=== PATIENT | male | born 1945 | race Asian ===

== ENCOUNTER 2018-01-22 23:31 | Emergency (ER) | payer SELFPAY | END 2018-01-23 | disposition left against medical advice (07) | LOC: EMS 23:31 | DX: R30.9 Painful micturition, unspecified (principal); Z53.21 Procedure and treatment not carried out due to patient leaving prior to being seen by health care provider ==

== ENCOUNTER 2019-03-16 15:07 | Emergency (ER) | payer SELFPAY ==
[~2019-03-16] VITALS: Ht 177.8 cm; Wt 87.3 kg
[2019-03-16] MEDS ORDERED: ATOR10TA84 PO (15:12)
[2019-03-16] MEDS ORDERED: SILVER SULFADIAZINE 1% 25 GM CREAM TP ONE (15:45)
[2019-03-16 16:05] VITALS: BP 130/80
== END 2019-03-16 16:06 | disposition home or self-care (01) ==
LOC: EMS 15:11
DX: T24.201A Burn of second degree of unspecified site of right lower limb, except ankle and foot, initial encounter (principal); T31.0 Burns involving less than 10% of body surface; E78.00 Pure hypercholesterolemia, unspecified; Z98.890 Other specified postprocedural states; Z79.899 Other long term (current) drug therapy; X11.8XXA Contact with other hot tap-water, initial encounter; Y93.89 Activity, other specified; Y92.69 Other specified industrial and construction area as the place of occurrence of the external cause; Y99.8 Other external cause status
CPT/HCPCS: 16000